=== PATIENT | male | born 1960 | race Two or more races ===

== ENCOUNTER 2016-08-23 01:24 | Emergency (ER) | payer MEDICAID, MEDICARE ==
[~2016-08-23] VITALS: Ht 172.7 cm; Wt 98.0 kg
[~2016-08-23 01:24] MED LIST: ADVAIR 250/501 PUFFS INH; ADVAIR 500-501 EACH INH; ALBUTEROL2.5 MG/3 M INH; AMLODIPINE BESYL5 MG ORAL; METFORMIN HCL1000 M1 ORAL; MONTELUKAST SOD10 MG ORAL; NAPROXEN SODIU550 M1 ORAL; NORCO 5-325 TA1 EACH ORAL; PANTOPRAZOLE SO40 MG ORAL; PREDNISONE10 MG ORAL; PROAIR HFA8.5 GM INH; PROMETHAZINE-C118 M1 ORAL; TYLENOL650 MG/20. ORAL
[2016-08-23] MEDS ORDERED: Ipratropium 0.02% Inh Soln 2.5ml UD ONE (01:46)
[2016-08-23] MEDS ORDERED: Albuterol ud Inhalation ONE (01:46)
--- NOTE | 2016-08-23 01:50 | Emergency Room Report ---
History of Present Illness General Chief Complaint: Flu Like Symptoms Source: Patient Present Illness HPI Is a 56-year-old male with a history of diabetes and hypertension. He has a history of asthma. He present with chief coughing and congestion. Onset yesterday. Also with a fever. He took his medication and is not helping. Cough is nonproductive in nature. Tylenol helps with a fever. Coughing is nonproductive. Also has congestion runny nose. Diffuse body pain. Allergies: Coded Allergies: No Known Allergies (Verified , 05/16/11) Patient History Past Medical History: see triage record, old chart reviewed, DM, HTN Past Surgical History: other Pertinent Family History: none Social History: Denies: smoking Immunizations: other Reviewed Nursing Documentation: PMH: Agreed, PSxH: Agreed Nursing Documentation-PMH Hx Cardiac Problems: Yes - HTN Hx Hypertension: Yes - High cholesterol Hx Pacemaker: No Hx Asthma: Yes Hx COPD: No Hx Diabetes: Yes Hx Cancer: No Hx Gastrointestinal Problems: Yes Hx Dialysis: No Hx Neurological Problems: No Hx Cerebrovascular Accident: No Hx Seizures: No Review of Systems Constitutional: Reports: fever Eye: Denies: blurred vision, eye pain ENT: Reports: nose congestion, Denies: ear pain, throat swelling Respiratory: Reports: cough, shortness of breath, wheezing Cardiovascular: Denies: chest pain, palpitations Gastrointestinal: Denies: abdominal pain, diarrhea, nausea, vomiting Musculoskeletal: Denies: back pain, joint pain Skin: Denies: rash Neurological: Denies: headache, numbness Endocrine: Denies: increased thirst, increased urine Hematologic/Lymphatic: Denies: easy bruising All Other Systems: negative except mentioned in HPI Physical Exam Vital Signs Date Time Temp Pulse Resp B/P Pulse Ox O2 Delivery O2 Flow Rate FiO2 08/23/16 01:37 99.9 130 16 120/68 97 Room Air vitals with fever and tachycardia Sp02 EP Interpretation: reviewed, normal General Appearance: well appearing, no apparent distress, alert Head: normocephalic, atraumatic Eyes: bilateral eye EOMI, bilateral eye PERRL ENT: hearing grossly normal, normal pharynx Neck: full range of motion, supple, no meningismus Respiratory: chest non-tender, lungs clear, normal breath sounds, other - Coughing fits Cardiovascular #1: regular rate, rhythm, no murmur Gastrointestinal: normal bowel sounds, non tender, no mass, no organomegaly, no bruit, non-distended Musculoskeletal: back normal, gait/station normal, normal range of motion Psychiatric: mood/affect normal Skin: warm/dry Medical Decision Making Diagnostic Impression: Primary Impression: Upper respiratory infection Qualified Codes: J06.9 - Acute upper respiratory infection, unspecified; B97.89 - Other viral agents as the cause of diseases classified elsewhere Additional Impressions: Asthma exacerbation Atypical pneumonia ER Course Patient presents with coughing congestion. Chest x-ray concerning for atypical pneumonia. He felt better after albuterol treatment. He showed no evidence of ACS, PE, dissection or CHF. We'll discharge home. Lab Results Impression labs unremarkable Rhythm Strip Diag. Results EP Interpretation: yes Rate: 100 Rhythm: NSR, no PVC's, no ectopy Chest X-Ray Diagnostic Results EP Interpretation: Yes Findings: no consolidation, no effusion, no pneumothorax, other - Increased interstitial markings Number of Views: 1 Last Vital Signs Date Time Temp Pulse Resp B/P Pulse Ox O2 Delivery O2 Flow Rate FiO2 08/23/16 01:37 99.9 130 16 120/68 97 Room Air Status: improved Disposition: HOME, SELF-CARE Condition: Stable Scripts Azithromycin* (ZITHROMAX*) 250 Mg Tablet 250 MG ORAL DAILY, #6 TAB 0 Refills Take two tablets by mouth today, then take one tablet by mouth daily for four days Prov: ANTHONY KELLER M.D. 08/23/16 Prednisone* (PREDNISONE*) 20 Mg Tablet 60 MG ORAL DAILY, #5 TAB Prov: ANTHONY KELLER M.D. 08/23/16 Additional Instructions: Followup with your DrFrancheska in 2 to 3 days. Return if symptom worsen. ANTHONY KELLER M.D. Aug 23, 2016 01:50
[2016-08-23] MEDS ORDERED: Albuterol ud Inhalation HHN ONE (02:00)
[2016-08-23] MEDS ORDERED: Solu-MEDROL 125mg Inj IVP ONE (02:00)
[2016-08-23] MEDS ORDERED: Ipratropium 0.02% Inh Soln 2.5ml UD HHN ONE (02:00)
[2016-08-23 02:09] LABS: BASOPHILS % (AUTO) 0.8 % (0.0-2.0); EOSINOPHILS % (AUTO) 1.9 % (0.0-3.0); LYMPHOCYTES % (AUTO) 17.7 % (20.0-45.0); MEAN CORPUSCULAR HEMOGLOBIN 29.9 PG (27.0-31.0); MEAN CORPUSCULAR HGB CONC 35.1 G/DL (32.0-36.0); MEAN CORPUSCULAR VOLUME 85 FL (80-99); MEAN PLATELET VOLUME 6.6 FL (6.5-10.1); MONOCYTES % (AUTO) 9.2 % (1.0-10.0); NEUTROPHILS % (AUTO) 70.5 % (45.0-75.0); PLATELET COUNT 264 K/UL (150-450); RED BLOOD COUNT 5.43 M/UL (4.70-6.10); RED CELL DISTRIBUTION WIDTH 11.5 % (11.6-14.8); WHITE BLOOD COUNT 12.4 K/UL (4.8-10.8)
[2016-08-23 02:10] VITALS: BP 121/72
[2016-08-23 02:26] LABS: ALANINE AMINOTRANSFERASE 34 U/L (3-41); ALBUMIN/GLOBULIN RATIO 1.4 (1.0-2.7); ANION GAP 17 (5-15); ASPARTATE AMINO TRANSFERASE 19 U/L (5-40); CALCIUM 9.3 mg/dL (8.6-10.2); CARBON DIOXIDE 23 mEQ/L (20-30); CHLORIDE 101 mEQ/L (98-107); GLOMERULAR FILTRATION RATE > 60 mL/min (>60); HEMOLYSIS 5; POTASSIUM 3.9 mEQ/L (3.4-4.9); SODIUM 141 mEQ/L (135-145); TOTAL PROTEIN 7.2 g/dL (6.6-8.7)
[2016-08-23] MEDS ORDERED: cefTRIAXone 1 GM in NS 55 ML IVPB ONE (02:45)
[2016-08-23] MEDS ORDERED: AZITHROMYCIN250 MG ORAL (03:24)
[2016-08-23] MEDS ORDERED: PREDNISONE20 MG ORAL (03:24)
[2016-08-23 03:32] VITALS: BP 130/70
--- NOTE | 2016-08-23 10:22 | Diagnostic Imaging Report ---
Indication: SOB Technique: One view of the chest Comparison: 05/22/2014 Findings: Inspiration is suboptimal.. Crowding of the vascular markings. Lungs and pleural spaces are otherwise clear. The heart size is upper limits of normal Impression: Hypoventilatory exam. No definite acute process
== END 2016-08-23 03:35 | disposition home or self-care (01) ==
LOC: EMR 01:53
DX: J06.9 Acute upper respiratory infection, unspecified (principal); B97.89 Other viral agents as the cause of diseases classified elsewhere; J18.9 Pneumonia, unspecified organism; J45.901 Unspecified asthma with (acute) exacerbation
CPT/HCPCS: 36415; 71010; 80053; 82962; 85025; 94640; 94664; 96374; 96375; 99284; J0696; J2930

== ENCOUNTER → 2018-06-08 | Emergency (ER) | payer MEDICARE, OTHER ==
[~2018-06-08] VITALS: Ht 167.6 cm; Wt 104.3 kg
[~2018-06-08] MED LIST changes: +AZITHROMYCIN250 MG ORAL; +Albuterol ud Inhalation HHN ONE; +CIPROFLOXACIN500 M2 ORAL; +Ciprofloxacin 500mg tab ORAL ONE; +DICYCLOMINE HCL10 MG PO; +Dicyclomine HCl 10mg/5ml oral soln ORAL ONE; +Ipratropium 0.02% Inh Soln 2.5ml UD HHN ONE; +Ketorolac 30mg Inj IV ONE; +Lidocaine 2% Visc 15ml soln ORAL ONE; +METRONIDAZOLE500 MG ORAL; +Mylanta II UD 30ml ORAL ONE; +ONDANSETRON ODT4 MG BC; +PREDNISONE20 MG ORAL; +RANITIDINE HCL150 MG ORAL; +metroNIDAZOLE 500mg tab ORAL ONE
[2018-06-08 20:15] VITALS: BP 130/77
[2018-06-08 20:55] LABS: BASOPHILS % (AUTO) 1.6 % (0.0-2.0); EOSINOPHILS % (AUTO) 1.4 % (0.0-3.0); HEMATOCRIT 48.4 % (42.0-52.0); HEMOGLOBIN 16.2 G/DL (14.2-18.0); LYMPHOCYTES % (AUTO) 26.2 % (20.0-45.0); MEAN CORPUSCULAR VOLUME 88 FL (80-99); MONOCYTES % (AUTO) 13.2 % (1.0-10.0); NEUTROPHILS % (AUTO) 57.6 % (45.0-75.0); PLATELET COUNT 280 K/UL (150-450); RED BLOOD COUNT 5.53 M/UL (4.70-6.10); RED CELL DISTRIBUTION WIDTH 11.9 % (11.6-14.8); WHITE BLOOD COUNT 7.3 K/UL (4.8-10.8)
[2018-06-08 21:08] LABS: ANION GAP 10 mmol/L (5-15); BLOOD UREA NITROGEN 15 mg/dL (7-18); CALCIUM 8.4 MG/DL (8.5-10.1); CARBON DIOXIDE 25 MMOL/L (21-32); CHLORIDE 108 MMOL/L (98-107); CREATININE 1.3 MG/DL (0.55-1.30); POTASSIUM 3.9 MMOL/L (3.5-5.1); SODIUM 143 MMOL/L (136-145)
[2018-06-08 21:14] LABS: ALANINE AMINOTRANSFERASE 92 U/L (12-78); ALBUMIN 3.5 G/DL (3.4-5.0); ALBUMIN/GLOBULIN RATIO 0.9 (1.0-2.7); ALKALINE PHOSPHATASE 112 U/L (46-116); ASPARTATE AMINO TRANSFERASE 44 U/L (15-37); BILIRUBIN,TOTAL 0.2 MG/DL (0.2-1.0)
[2018-06-08 21:30] VITALS: BP 130/77
--- NOTE | 2018-06-09 15:32 | Emergency Room Report ---
History of Present Illness General Chief Complaint: Abdominal Pain Source: Patient Present Illness HPI 58-year-old male presenting ED for evaluation. Complaining of abdominal pain with vomiting and diarrhea 3 days. Pain is cramping, 8 out of 10, nonradiating. Patient states that he recently traveled from [place] and [facility]. Denies fevers or chills. States he's been having wheezing. History of asthma. Denies cough. Denies chest pain or shortness of breath. No other aggravating relieving factors. Denies any other associated symptoms Allergies: Coded Allergies: No Known Allergies (Verified , 05/16/11) Patient History Past Medical History: DM, HTN, asthma Past Surgical History: none Pertinent Family History: none Social History: Denies: smoking, alcohol use, drug use Immunizations: UTD Reviewed Nursing Documentation: PMH: Agreed; PSxH: Agreed Nursing Documentation-PMH Past Medical History: No History, Except For Hx Cardiac Problems: Yes - HTN Hx Hypertension: Yes - High cholesterol Hx Pacemaker: No Hx Asthma: Yes Hx COPD: No Hx Diabetes: Yes Hx Cancer: No Hx Gastrointestinal Problems: Yes Hx Dialysis: No Hx Neurological Problems: No Hx Cerebrovascular Accident: No Hx Seizures: No Review of Systems All Other Systems: negative except mentioned in HPI Physical Exam Vital Signs Date Time Temp Pulse Resp B/P (MAP) Pulse Ox O2 Delivery O2 Flow Rate FiO2 06/08/18 20:08 98.1 87 16 130/77 98 Room Air 06/08/18 20:28 21 Sp02 EP Interpretation: reviewed, normal General Appearance: no apparent distress, alert, GCS 15, non-toxic Head: normocephalic, atraumatic Eyes: bilateral eye normal inspection, bilateral eye PERRL ENT: hearing grossly normal, normal pharynx, no angioedema, normal voice Neck: full range of motion, supple/symm/no masses Respiratory: chest non-tender, normal breath sounds, speaking full sentences, wheezing Cardiovascular #1: regular rate, rhythm, no edema Cardiovascular #2: 2+ carotid (R), 2+ carotid (L), 2+ radial (R), 2+ radial (L) , 2+ dorsalis pedis (R), 2+ dorsalis pedis (L) Gastrointestinal: normal bowel sounds, soft, non-distended, no guarding, no rebound, tenderness Rectal: deferred Genitourinary: normal inspection, no CVA tenderness Musculoskeletal: back normal, gait/station normal, normal range of motion, non- tender Neurologic: alert, oriented x3, responsive, motor strength/tone normal, sensory intact, speech normal Psychiatric: judgement/insight normal, memory normal, mood/affect normal, no suicidal/homicidal ideation Reflexes: 3+ bicep (R), 3+ bicep (L), 3+ tricep (R), 3+ tricep (L), 3+ knee (R) , 3+ knee (L) Skin: normal color, no rash, warm/dry, well hydrated Lymphatic: no adenopathy Medical Decision Making Diagnostic Impression: Primary Impression: Colitis Additional Impression: Asthma exacerbation Qualified Codes: J45.21 - Mild intermittent asthma with (acute) exacerbation ER Course Hospital Course 58-year-old M presents to ED with cramping abdominal pain with vomiting, diarrhea differential diagnosis: gastritis, SBO, cholecystits, gastroenteritis Clinical course Patient placed on stretcher. On resin coater. After initial history and physical I ordered labs, IV fluids, Zofran and pepcid Labs - no leukocytosis, electrolytes ok , LFTs normal Given breathing treatments, prednisone with wheezing improved discussed findings with patient. Given recent foreign travel to [facility] and [place] we will prescribe Cipro and Flagyl. Given dose of Cipro and Flagyl here I feel this is a highly complex case requiring extensive working including EKG/ Rhythm strip, Xray/CT/US, Blood/urine lab work, repeat exams while in ED, and administration of strong opiates/narcotics for pain control, admission to hospital or close patient follow up. Diagnosis - colitis, asthma exacerbation Stable and discharged to home with prescriptions for cipro, flagyl, zofran, zantac, bentyl, prednisone. Followup with PMD. Return to ED if symptoms recur or worsen Labs Test 06/08/18 20:20 White Blood Count 7.3 K/UL (4.8-10.8) Red Blood Count 5.53 M/UL (4.70-6.10) Hemoglobin 16.2 G/DL (14.2-18.0) Hematocrit 48.4 % (42.0-52.0) Mean Corpuscular Volume 88 FL (80-99) Mean Corpuscular Hemoglobin 29.3 PG (27.0-31.0) Mean Corpuscular Hemoglobin Concent 33.4 G/DL (32.0-36.0) Red Cell Distribution Width 11.9 % (11.6-14.8) Platelet Count 280 K/UL (150-450) Mean Platelet Volume 6.1 FL (6.5-10.1) Neutrophils (%) (Auto) 57.6 % (45.0-75.0) Lymphocytes (%) (Auto) 26.2 % (20.0-45.0) Monocytes (%) (Auto) 13.2 % (1.0-10.0) Eosinophils (%) (Auto) 1.4 % (0.0-3.0) Basophils (%) (Auto) 1.6 % (0.0-2.0) Sodium Level 143 MMOL/L (136-145) Potassium Level 3.9 MMOL/L (3.5-5.1) Chloride Level 108 MMOL/L (98-107) Carbon Dioxide Level 25 MMOL/L (21-32) Anion Gap 10 mmol/L (5-15) Blood Urea Nitrogen 15 mg/dL (7-18) Creatinine 1.3 MG/DL (0.55-1.30) Estimat Glomerular Filtration Rate 56.5 mL/min (>60) Glucose Level 120 MG/DL (74-106) Calcium Level 8.4 MG/DL (8.5-10.1) Total Bilirubin 0.2 MG/DL (0.2-1.0) Aspartate Amino Transf (AST/SGOT) 44 U/L (15-37) Alanine Aminotransferase (ALT/SGPT) 92 U/L (12-78) Alkaline Phosphatase 112 U/L (46-116) Total Protein 7.2 G/DL (6.4-8.2) Albumin 3.5 G/DL (3.4-5.0) Globulin 3.7 g/dL Albumin/Globulin Ratio 0.9 (1.0-2.7) Lipase 151 U/L (73-393) Last Vital Signs Date Time Temp Pulse Resp B/P (MAP) Pulse Ox O2 Delivery O2 Flow Rate FiO2 06/08/18 21:30 98.1 78 18 130/77 100 Room Air 21 Status: improved Disposition: HOME, SELF-CARE Condition: Stable Scripts Dicyclomine Hcl* (DICYCLOMINE HCL*) 10 Mg Capsule 10 MG PO QID for 5 Days, CAP Prov: Jacob Stephenson MD 06/08/18 Ondansetron Odt* (ZOFRAN ODT*) 4 Mg Tab.rapdis 4 MG BC EVERY 8 HOURS, #20 TAB 0 Refills Prov: Jacob Stephenson MD 06/08/18 Ranitidine Hcl* (ZANTAC*) 150 Mg Tablet 150 MG ORAL TWICE A DAY, #30 TAB Prov: Jacob Stephenson MD 06/08/18 Metronidazole* (FLAGYL*) 500 Mg Tablet 500 MG ORAL THREE TIMES A DAY, #21 TAB Prov: Jacob Stephenson MD 06/08/18 Ciprofloxacin Hcl* (CIPROFLOXACIN HCL*) 500 Mg Tablet 500 MG ORAL Q12H, #14 TAB 0 Refills Prov: Jacob Stephenson MD 06/08/18 Prednisone* (PREDNISONE*) 20 Mg Tablet 40 MG ORAL DAILY, #10 TAB Prov: Jacob Stephenson MD 06/08/18 Referrals: NON PHYSICIAN (PCP) Gloria Vale. [facility] Patient Instructions: Colitis Jacob Stephenson MD Jun 09, 2018 15:32
== END | disposition home or self-care (01) ==
LOC: EMR 22:34
DX: K52.9 Noninfective gastroenteritis and colitis, unspecified (principal); J45.21 Mild intermittent asthma with (acute) exacerbation; E11.9 Type 2 diabetes mellitus without complications; I10 Essential (primary) hypertension; E78.00 Pure hypercholesterolemia, unspecified
CPT/HCPCS: 36415; 80053; 83690; 85025; 94640; 94664; 96361; 96374; 99284; J1885; J2405; J7512; S0028

== ENCOUNTER 2019-02-07 21:58 | Emergency (ER) | payer MEDICARE ==
[~2019-02-07] VITALS: Ht 167.6 cm; Wt 77.1 kg
[~2019-02-07 21:58] MED LIST changes: -Albuterol ud Inhalation HHN ONE; -Ciprofloxacin 500mg tab ORAL ONE; -Dicyclomine HCl 10mg/5ml oral soln ORAL ONE; -Ipratropium 0.02% Inh Soln 2.5ml UD HHN ONE; -Ketorolac 30mg Inj IV ONE; -Lidocaine 2% Visc 15ml soln ORAL ONE; -Mylanta II UD 30ml ORAL ONE; -metroNIDAZOLE 500mg tab ORAL ONE
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
[2019-02-07 22:13] VITALS: BP 135/86
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
[2019-02-07] MEDS ORDERED: Acetaminophen 500mg (ES) tab ORAL ONE (22:45)
--- NOTE | 2019-02-07 22:51 | NUR ---
ED Nurse Note: Patient went over for CT.
--- NOTE | 2019-02-07 23:06 | NUR ---
ED Nurse Note: Patient returned from CT.
--- NOTE | 2019-02-07 23:18 | Diagnostic Imaging Report ---
EXAM: XR Left Wrist Complete, 3 Views CLINICAL HISTORY: INJ TECHNIQUE: Frontal, lateral and oblique views of the left wrist. COMPARISON: No relevant prior studies available. FINDINGS: Bones joints: Unremarkable. No acute fracture. No dislocation. Soft tissues: Unremarkable. No radiopaque foreign body. IMPRESSION: No definite plain film evidence for acute fracture or dislocation. If there is continued clinical concern for fracture, consider CT or MRI for further evaluation.
--- NOTE | 2019-02-07 23:31 | Diagnostic Imaging Report ---
EXAM: CT Cervical Spine Without Intravenous Contrast CLINICAL HISTORY: INJ TECHNIQUE: Axial computed tomography images of the cervical spine without intravenous contrast. CTDI is 44.9 mGy and DLP is 1219.7 mGy-cm. One or more of the following dose reduction techniques were used: automated exposure control, adjustment of the mA and or kV according to patient size, use of iterative reconstruction technique. COMPARISON: No relevant prior studies available. FINDINGS: Vertebrae: No acute fracture. Degenerative changes. Few nonspecific ovoid lucencies Discs spinal canal neural foramina: No acute process. Degenerative changes. Soft tissues: Unremarkable. IMPRESSION: No fracture or malalignment.
--- NOTE | 2019-02-08 00:01 | Diagnostic Imaging Report ---
EXAM: CT Lumbar Spine Without Intravenous Contrast CLINICAL HISTORY: INJ TECHNIQUE: Axial computed tomography images of the lumbar spine without intravenous contrast. CTDI is 42.5 mGy and DLP is 1614.4 mGy-cm. One or more of the following dose reduction techniques were used: automated exposure control, adjustment of the mA and or kV according to patient size, use of iterative reconstruction technique. Coronal and sagittal reformatted images were created and reviewed. COMPARISON: No relevant prior studies available. FINDINGS: A transitional vertebra seen at the lumbosacral junction. For the purposes of this dictation, the transitional vertebra will be considered L5. Vertebrae: Mild vertebral body compression fracture at T11. It is unclear if this is acute, chronic, or acute on chronic. No definite CT evidence for surrounding edema to suggest an acute process. There is less than 50% loss of the T11 vertebral body height. No evidence for retropulsion of fracture fragments into the spinal canal. The vertebral alignment is normal. Anterior osteophytes are noted at multiple levels. Discs spinal canal neural foramina: Question of some spinal canal stenosis at L3-L4 and L4-L5. This could better be evaluated with MRI if the patient can tolerate MRI. Mild neural foraminal narrowing is suspected at L4-L5 secondary to degenerative changes of the facet joints. Degenerative changes of the sacroiliac joints. Soft tissues: Unremarkable. Gallbladder and bile ducts: Status post cholecystectomy. IMPRESSION: 1. Mild vertebral body compression fracture at T11. It is unclear if this is acute, chronic, or acute on chronic. No definite CT evidence for surrounding edema to suggest an acute process. There is less than 50% loss of the T11 vertebral body height. No evidence for retropulsion of fracture fragments into the spinal canal. 2. Question of some spinal canal stenosis at L3-L4 and L4-L5. This could better be evaluated with MRI if the patient can tolerate MRI. 3. Degenerative changes of the lumbar spine as described above.
[2019-02-08] MEDS ORDERED: ROBAXIN-750750 MG PO (00:26)
[2019-02-08] MEDS ORDERED: IBUPROFEN600 MG ORAL (00:26)
--- NOTE | 2019-02-08 00:31 | Diagnostic Imaging Report ---
Indication: Pain, trauma Technique: 3 views left hand Comparison: none Findings: No acute fractures. No dislocations. The joint spaces are preserved. Impression: Negative This agrees with the preliminary interpretation provided by the emergency room physician
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
[2019-02-08 00:41] VITALS: BP 135/86
== END 2019-02-08 00:41 | disposition home or self-care (01) ==
LOC: EMR 22:25
DX: S60.212A Contusion of left wrist, initial encounter (principal); S22.080A Wedge compression fracture of T11-T12 vertebra, initial encounter for closed fracture; M48.00 Spinal stenosis, site unspecified; M54.2 Cervicalgia; I10 Essential (primary) hypertension; E11.9 Type 2 diabetes mellitus without complications; J45.909 Unspecified asthma, uncomplicated; E78.5 Hyperlipidemia, unspecified; V43.62XA Car passenger injured in collision with other type car in traffic accident, initial encounter; Y92.410 Unspecified street and highway as the place of occurrence of the external cause
CPT/HCPCS: 72125; 72131; 99284